=== PATIENT | male | born 1955 | race Caucasian/White ===

== ENCOUNTER 2024-01-15 11:07 | Emergency (ER) | payer MEDICAID, MEDICARE ==
[2024-01-15] MEDS ORDERED: Sodium Chloride 0.9% 10 ML Syringe FLUSH PRN (12:08)
[2024-01-15 12:22] LABS: BASOPHILS PERCENT AUTO 0.2 % (0.1-1.3); HEMOGLOBIN 15.3 g/dL (12.9-16.9); IMMATURE GRAN ABSOLUTE AUTO 0.03 K/uL (0.00-0.23); IMMATURE GRAN PERCENT AUTO 0.3 % (0.0-0.7); LYMPHOCYTES ABSOLUTE AUTO 1.58 K/uL (0.8-3.3); LYMPHOCYTES PERCENT AUTO 14.4 % (11.4-47.7); MEAN CORPUSCULAR HEMOGLOBIN 32.1 pg (31.6-35.5); MEAN CORPUSCULAR HGB CONC 36.4 g/dL (31.6-35.5); MEAN CORPUSCULAR VOLUME 88.1 fL (81.4-99.0); MONOCYTES ABSOLUTE AUTO 0.76 K/uL (0.20-0.90); MONOCYTES PERCENT AUTO 6.9 % (3.3-12.6); NEUTROPHILS ABSOLUTE AUTO 8.62 K/uL (1.0-7.6); NEUTROPHILS PERCENT AUTO 78.2 % (40.0-78.1); PLATELET COUNT,PLT 174 K/uL (130-375); RED BLOOD CELL COUNT 4.77 M/uL (4.14-5.76)
[2024-01-15 12:26] LABS: BASOPHILS ABSOLUTE AUTO 0.02 K/uL (0.00-0.10)
[2024-01-15] MEDS: Sodium Chloride 0.9% 1,000 ML IV SCH (12:35)
[2024-01-15 12:53] LABS: ALANINE AMINOTRANSFERASE,ALT 43 U/L (12-78); ALBUMIN 3.8 g/dL (3.4-5.0); ALKALINE PHOSPHATASE 52 U/L (46-116); ASPARTATE AMNIOTRANSFERASE,AST 22 U/L (15-37); BILIRUBIN TOTAL 0.8 mg/dL (0.2-1.0); BLOOD UREA NITROGEN,BUN 32 mg/dL (7-18); CALCIUM 9.6 mg/dL (8.5-10.1); CARBON DIOXIDE,CO2 28 mmol/L (21-32); CHLORIDE,CL 97 mmol/L (100-108); CREATININE 1.5 mg/dL (0.8-1.3); ESTIMATED GFR 51 mL/min (>60); GLUCOSE RANDOM 315 mg/dL (74-106); MAGNESIUM 1.7 mg/dL (1.8-2.4); POTASSIUM,K 4.3 mmol/L (3.6-5.2); PROTEIN TOTAL,TP 7.6 g/dL (6.4-8.2); SODIUM,NA 134 mmol/L (140-148); TSH ULTRASENSITIVE 0.957 uIU/mL (0.358-3.740)
[2024-01-15 12:55] LABS: ANION GAP 13.3 mmol/L (5.0-14.0)
[2024-01-15 12:56] LABS: C-REACTIVE PROTEIN < 0.50 mg/dL (<0.50); PHOSPHORUS 3.8 mg/dL (2.5-4.9)
[2024-01-15 14:02] LABS: APPEARANCE,URINE CLEAR (CLEAR); BILIRUBIN,URINE NEGATIVE (NEGATIVE); COLOR,URINE YELLOW (YELLOW); GLUCOSE,URINE 500 mg/dL (NEGATIVE); KETONES,URINE NEGATIVE (NEGATIVE); LEUKOCYTE ESTERASE,URINE NEGATIVE (NEGATIVE); NITRITE,URINE NEGATIVE (NEGATIVE); OCCULT BLOOD,URINE NEGATIVE (NEGATIVE); PH,URINE 5.5 (5.0-8.0); PROTEIN,URINE NEGATIVE (NEGATIVE)
[2024-01-15 14:08] LABS: AMORPHOUS SEDIMENT,URINE NOT SEEN; BACTERIA,URINE NOT SEEN; EPITHELIAL CELLS,URINE RARE; MUCUS,URINE NOT SEEN; RBC,URINE 0-5 (0-5); WBC,URINE 0-5 (0-5)
== END 2024-01-15 15:15 | disposition home or self-care (01) ==
LOC: JP.ED 11:07
DX: E10.65 Type 1 diabetes mellitus with hyperglycemia (principal); E87.1 Hypo-osmolality and hyponatremia; I10 Essential (primary) hypertension; E78.00 Pure hypercholesterolemia, unspecified; Z79.4 Long term (current) use of insulin; Z79.899 Other long term (current) drug therapy; Z86.16 Personal history of COVID-19; Z87.891 Personal history of nicotine dependence
CPT/HCPCS: 36415; 80053; 81001; 83615; 83735; 84100; 84443; 85025; 86140; 93005; 96360; 96361; 99285; J7030

== ENCOUNTER 2024-01-30 08:14 | Emergency (ER) | payer MEDICARE ==
[2024-01-30 09:39] LABS: BASOPHILS ABSOLUTE AUTO 0.03 K/uL (0.00-0.10); BASOPHILS PERCENT AUTO 0.3 % (0.1-1.3); EOSINOPHILS ABSOLUTE AUTO 0.03 K/uL (0.00-0.40); EOSINOPHILS PERCENT AUTO 0.3 % (0.0-5.4); HEMATOCRIT 40.5 % (38.4-49.7); HEMOGLOBIN 14.3 g/dL (12.9-16.9); IMMATURE GRAN ABSOLUTE AUTO 0.04 K/uL (0.00-0.23); IMMATURE GRAN PERCENT AUTO 0.4 % (0.0-0.7); LYMPHOCYTES ABSOLUTE AUTO 1.24 K/uL (0.8-3.3); MEAN CORPUSCULAR HEMOGLOBIN 31.8 pg (31.6-35.5); MEAN CORPUSCULAR HGB CONC 35.3 g/dL (31.6-35.5); MONOCYTES ABSOLUTE AUTO 0.83 K/uL (0.20-0.90); NEUTROPHILS ABSOLUTE AUTO 8.16 K/uL (1.0-7.6); PLATELET COUNT,PLT 163 K/uL (130-375); WHITE BLOOD CELL COUNT,WBC 10.3 K/uL (3.2-11.0)
[2024-01-30 09:54] LABS: CALCIUM 9.3 mg/dL (8.5-10.1); CREATININE 0.9 mg/dL (0.8-1.3); EST CRCL DRUG DOSING (CG) 93.87 mL/min; POTASSIUM,K 3.6 mmol/L (3.6-5.2)
[2024-01-30 09:55] LABS: ANION GAP 9.6 mmol/L (5.0-14.0)
== END 2024-01-30 10:36 | disposition home or self-care (01) ==
LOC: JP.ED 08:14
DX: E10.649 Type 1 diabetes mellitus with hypoglycemia without coma (principal); I10 Essential (primary) hypertension; E78.00 Pure hypercholesterolemia, unspecified; Z86.16 Personal history of COVID-19; Z79.4 Long term (current) use of insulin; Z79.899 Other long term (current) drug therapy
CPT/HCPCS: 36415; 80048; 85025; 99284

== ENCOUNTER 2024-04-17 16:03 | Emergency (ER) | payer MEDICARE ==
[2024-04-17] MEDS ORDERED: 50% Dextrose in Water 50 ML Syringe IVPUSH PRN (17:11)
[2024-04-17] MEDS ORDERED: Glucagon,Human Recombinant 1 MG Vial IM PRN (17:11)
[2024-04-17] MEDS: Insulin Regular, Human 100 Units/ML 3 ML Vial SUBCUT ONE (17:26)
== END 2024-04-17 17:34 | disposition home or self-care (01) ==
LOC: JP.ED 16:03
DX: E10.65 Type 1 diabetes mellitus with hyperglycemia (principal); N41.0 Acute prostatitis; I10 Essential (primary) hypertension; J45.909 Unspecified asthma, uncomplicated; E78.00 Pure hypercholesterolemia, unspecified; Z87.891 Personal history of nicotine dependence; Z79.899 Other long term (current) drug therapy; Z79.4 Long term (current) use of insulin
CPT/HCPCS: 99284; J1815